=== PATIENT | male | born 1990 | race Caucasian/White ===

== ENCOUNTER 2017-04-01 18:05 | Emergency (ER) | payer MEDICAID, OTHER ==
[~2017-04-01] VITALS: Ht 170.2 cm; Wt 64.1 kg
[~2017-04-01 18:05] MED LIST: CEPH-443 PO; HYDR-3498 PO
[2017-04-01 18:16] VITALS: Ht 170.2 cm; Wt 64.1 kg
[2017-04-01] MEDS ORDERED: ERYT1OIN6 OP (19:56)
[2017-04-01] MEDS ORDERED: IBUP-1542 PO (19:56)
[2017-04-01] MEDS ORDERED: FLUORESCEIN STRIP LEFT EYE ONE (20:00)
[2017-04-01] MEDS ORDERED: TETRACAINE 0.5% 4 ML OPH LEFT EYE ONE (20:00)
[2017-04-01] MEDS ORDERED: OPHTHALMIC IRRIG SOLUTION 120 ML LEFT EYE ONE (20:00)
--- NOTE | 2017-04-01 20:01 | ERD ---
ER Documentation Chief Complaint Chief Complaint Pt with L eye pain X 6 days, possible foreign body in eye. HPI This 26-year-old male presents with a foreign body sensation underneath his left upper eyelid. Using a saws all 2 days ago. Denies visual changes or visual field deficits, discharge or bleeding. Denies additional symptoms. ROS All systems reviewed and are negative except as per history of present illness. Medications Home Meds Active Scripts Ibuprofen* (Motrin*) 600 Mg Tab, 600 MG PO Q6, #15 TAB Prov:STEPAN VALADEZ MD 04/01/17 Erythromycin Base (Erythromycin) 1 Gm Oint...g., 1 GM OP QID for 7 Days Prov:STEPAN VALADEZ MD 04/01/17 Hydrocodone Bit-Acetaminophen* ([place]*) 5-325 Mg Tab, 1 TAB PO Q6 Y for PAIN, # 20 TAB Prov:VICK ROLDANSTKWAN Chew DO 03/23/15 Cephalexin* (Keflex*) 500 Mg Capsule, 500 MG PO QID for 5 Days, CAP Prov:VICK ROLDANSTOLOS Jeevan DO 03/23/15 Allergies Allergies: Coded Allergies: No Known Allergy (Unverified , 03/23/15) PMhx/Soc History of Surgery: No Anesthesia Reaction: No Hx Neurological Disorder: No Hx Respiratory Disorders: No Hx Cardiac Disorders: No Hx Psychiatric Problems: No Hx Miscellaneous Medical Probl: No Hx Alcohol Use: No Hx Substance Use: No Hx Tobacco Use: No Smoking Status: Never smoker Physical Exam Vitals Vital Signs Date Time Temp Pulse Resp B/P Pulse Ox O2 Delivery O2 Flow Rate FiO2 04/01/17 18:16 98.3 83 18 150/92 98 Physical Exam Const: [], [id number] per Head: Atraumatic Eyes: Normal Conjunctiva. No appreciable foreign body upon lid eversion no fluorescein uptake appreciated. Visual acuity shows no acute abnormalities. eyewas irrigated. Negative negative mauro sign ENT: Normal External Ears, Nose and Mouth. Neck: Full range of motion..~ No meningismus. Resp: Clear to auscultation bilaterally Cardio: Regular rate and rhythm, no murmurs Abd: Soft, non tender, non distended. Normal bowel sounds Skin: No petechiae or rashes Back: No midline or flank tenderness Ext: No cyanosis, or edema Neur: Awake and alert Psych: Normal Mood and Affect Results 24 hrs Current Medications Medications (Trade) Dose Ordered Sig/Nilam Route PRN Reason Start Time Stop Time Status Last Admin Dose Admin Fluorescein Sodium ([id number]) 1 strip ONCE ONCE LEFT EYE 04/01/17 20:00 04/01/17 20:01 Tetracaine HCl (Tetracaine 0.5% Steri-Unit Marley) 1 drop ONCE ONCE LEFT EYE 04/01/17 20:00 04/01/17 20:01 Irrigating Solution (Eye Wash) 1 applic ONCE ONCE LEFT EYE 04/01/17 20:00 04/01/17 20:01 Procedures/MDM Patient presents with foreign body sensation underneath the left eyelid not visualized foreign body. He may have a small abrasion on the conjunctiva are elevated. He will be treated with erythromycin ointment, ibuprofen and ophthalmology follow-up this week. Is no evidence of optic neuritis, globe rupture orbital cellulitis, retinal detachment, additional emergencies. The patient was stable with no new complaints during the ER course. Clinically, there is no current evidence to suggest meningitis, sepsis, acute abdomen, pneumonia, acute coronary syndrome, pulmonary embolism, or any other emergent condition appearing to require further evaluation or hospitalization. The patient should certainly return for any new or worsening symptoms per the aftercare instructions. They should otherwise follow-up with her primary care doctor for reevaluation this week. Departure Diagnosis: Primary Impression: Eye injury Encounter type: initial encounter Laterality: left Qualified Code: S05.92XA - Left eye injury, initial encounter Additional Impression: Eye problem Condition: Stable Patient Instructions: Conjunctival Foreign Body, Resolved Referrals: [facility] WITH [facility] Hours: Mon - Fri 9:00 AM - 5:00 PM Additional Instructions: no puedo arian un cosa . Va al farias doctor/ specialista para mas evaluacon en el proximo semana. posiblemente necesita autorizado de farias doctor primario para specialista. Regresa para fiebre, o mas o nueva simptomas. STEPAN VALADEZ MD Apr 01, 2017 20:01
== END 2017-04-01 19:59 | disposition home or self-care (01) ==
LOC: FTE 18:05
DX: S05.92XA Unspecified injury of left eye and orbit, initial encounter (principal); X58.XXXA Exposure to other specified factors, initial encounter; Y92.9 Unspecified place or not applicable
CPT/HCPCS: Z7502; Z7610; 99283